=== PATIENT | male | born 1990 | race African-American/Black ===

== ENCOUNTER 2025-04-19 08:34 | Emergency (ER) | payer MEDICAID ==
[~2025-04-19] VITALS: Ht 170.2 cm; Wt 72.7 kg
[~2025-04-19 08:34] MED LIST: NOCURR
[2025-04-19 10:33] VITALS: BP 120/72; PULSE 60; RESP 18; TEMP 98.3; O2SAT 99
[2025-04-19] MEDS ORDERED: IBUP-1492 PO (10:34)
[2025-04-19] MEDS ORDERED: CYCL-448 PO (10:34)
== END 2025-04-19 10:48 | disposition home or self-care (01) ==
LOC: EMS 08:35
DX: M62.830 Muscle spasm of back (principal); F12.90 Cannabis use, unspecified, uncomplicated; M25.511 Pain in right shoulder; V89.2XXA Person injured in unspecified motor-vehicle accident, traffic, initial encounter; Y93.89 Activity, other specified; Y92.410 Unspecified street and highway as the place of occurrence of the external cause; Y99.8 Other external cause status
CPT/HCPCS: 99283; Z7502